=== PATIENT | female | born 1995 | race Caucasian/White ===

== ENCOUNTER 2023-06-26 17:57 | Emergency (ER) | payer OTHER ==
[~2023-06-26] VITALS: Ht 157.5 cm; Wt 63.7 kg
[2023-06-26 19:50] VITALS: BP 156/95; PULSE 101; RESP 17; TEMP 98; O2SAT 100
[2023-06-26 19:55] VITALS: O2SAT 100
[2023-06-26] MEDS ORDERED: NACL 0.9% 1,000 ML IV ONE (20:15)
[2023-06-26 20:29] LABS: APPEARANCE,URINE CLEAR (CLEAR); BILIRUBIN,URINE NEGATIVE (NEGATIVE); BLOOD, URINE NEGATIVE (NEGATIVE); COLOR,URINE YELLOW (YELLOW); LEUKOCYTE ESTERASE ,URINE NEGATIVE (NEGATIVE); NITRITE, URINE NEGATIVE (NEGATIVE); PROTEIN,URINE TRACE (NEGATIVE); UGLUCOSE NEGATIVE (NEGATIVE); UROBILINOGEN,URINE 0.2 EU/dL (0.2 - 1)
[2023-06-26 20:36] LABS: AMPHETAMINE, URINE POSITIVE ng/ml (NEG <=1000); BARBITURATE, URINE NEGATIVE ng/ml (NEG <=200); BENZODIAZEPINE, URINE NEGATIVE ng/mL (NEG <=200); COCAINE, URINE NEGATIVE ng/mL (NEG <=300)
[2023-06-26 20:37] LABS: CANNABINOID, URINE POSITIVE ng/mL (NEG <=50); OPIATE, URINE NEGATIVE ng/mL (NEG <=2000); PHENCYCLIDINE SCREEN,URINE NEGATIVE ng/mL (NEG <=25)
== END 2023-06-26 20:52 ==
LOC: MED 17:57
DX: O26.899 Other specified pregnancy related conditions, unspecified trimester (principal); Z02.89 Encounter for other administrative examinations; O99.320 Drug use complicating pregnancy, unspecified trimester; F15.10 Other stimulant abuse, uncomplicated; F12.90 Cannabis use, unspecified, uncomplicated; Z3A.00 Weeks of gestation of pregnancy not specified
CPT/HCPCS: 80305; 81003; 81025; 99284; J7030